=== PATIENT | female | born 1935 | race Caucasian/White ===

== ENCOUNTER 2022-06-14 21:13 | Inpatient (IN) ==
[2022-06-14] MEDS ORDERED: ALBUTEROL/IPRATROPIUM 3 ML NEB RESP TX STA (21:56)
[2022-06-14] MEDS ORDERED: methylPREDNISolone SOD SUC 125 MG/2 ML VIAL IV STA (21:56)
[2022-06-14] MEDS ORDERED: ALBUTEROL NEB SOLN 5 MG/ML 20 ML/BOTTLE CONT NEB SCH (22:30)
[2022-06-14] MEDS ORDERED: ALBUTEROL 2.5 MG/3 ML NEB RESP TX ONE (22:32)
[2022-06-14 22:35] LABS: Basophils % 0.1 % (0.0-0.8); Hematocrit 41.4 VOL% (35.7-47.0); Hemoglobin 13.6 GM/DL (12.0-16.0); Immature Granulocytes % 0.6 %; Immature Granulocytes Absolute 0.09 #; Lymphocytes # 2.2 10*3/uL (1.4-4.0); Lymphocytes % 15.7 % (21.3-54.2); Mean Corpuscular HGB Conc 32.9 GM/DL (32-36); Mean Platelet Volume 10.3 FL (9.6-12.0); Monocytes # 0.5 10*3/uL (0.11-0.8); Monocytes % 3.5 % (1.7-12.7); Neutrophils % 80.1 % (38.7-73.9); Platelet Count 320 T/CUMM (130-400); Red Blood Count 4.45 MC/CUMM (3.8-5.5); Red Cell Distribution Width 13.6 % (9.3-17.3); White Blood Count 14.2 T/CUMM (4-12)
[2022-06-14 22:55] LABS: PT Patient Result 10.7 SECS (10.1-12.1)
[2022-06-14 23:19] LABS: Alanine Aminotransferase 23 U/L (13-56); Albumin 4.1 G/DL (3.4-5.0); Alkaline Phosphatase 97 U/L (45-117); Aspartate Amino Transferase 31 U/L (0-37); Bilirubin,Total < 0.39 MG/DL (0.20-1.00); Blood Urea Nitrogen 32 MG/DL (7-18); Carbon Dioxide 23 MMOL/L (21-32); Chloride 101 MMOL/L (98-107); Glucose 237 MG/DL (74-106); Osmolality,Calculated 282.2 MOS/KG (273-304); Potassium 3.9 MMOL/L (3.5-5.1); Sodium 134 MMOL/L (136-145); Total Protein 7.6 G/DL (6.4-8.2)
[2022-06-14] MEDS ORDERED: cefTRIAXone 1,000 MG in SODIUM CHLORIDE 0.9% 100 ML IV STA (23:44)
[2022-06-15 00:35] LABS: Amorphous Crystals,Urine Occasional /HPF (Few); Mucus,Urine Occasional /LPF (Occasional); Squamous Epithelial Cell,Urine Occasional /HPF (0-10)
[2022-06-15 00:40] LABS: Bilirubin,Urine Negative (Negative); Blood, Urine Moderate mg/dL (Negative); Glucose,Urine (UA) >=1000 mg/dL (Negative); Ketones,Urine Trace mg/dL (Negative); Nitrite,Urine Negative (Negative); Protein,Urine >=300 mg/dL (Negative); Urine Appearance Clear (Clear); Urine Color Yellow (Yellow); Urine Specific Gravity 1.025 (1.001-1.035); Urine Urobilinogen 0.2 eU/dL (<2.0)
[2022-06-15] MEDS ORDERED: GLUCAGON 1 MG VIAL IM PRN (03:22)
[2022-06-15] MEDS ORDERED: MORPHINE 2 MG/1 ML SYRINGE IV PRN (03:22)
[2022-06-15] MEDS ORDERED: DEXTROSE 10% 250 ML BAG IV PRN (03:22)
[2022-06-15] MEDS ORDERED: ONDANSETRON 4 MG/2 ML VIAL IV PRN (03:22)
[2022-06-15] MEDS: SODIUM CHLORIDE 0.9% 1,000 ML IV SCH ×2 (03:40→20:26)
[2022-06-15 05:21] LABS: Basophils % 0.1 % (0.0-0.8); Hematocrit 39.4 VOL% (35.7-47.0); Immature Granulocytes % 0.6 %; Immature Granulocytes Absolute 0.07 #; Lymphocytes % 8.5 % (21.3-54.2); Mean Corpuscular Volume 93.6 FL (87-102); Mean Platelet Volume 10.8 FL (9.6-12.0); Monocytes # 0.1 10*3/uL (0.11-0.8); Monocytes % 0.9 % (1.7-12.7); Neutrophils % 89.9 % (38.7-73.9); Platelet Count 301 T/CUMM (130-400); Red Blood Count 4.21 MC/CUMM (3.8-5.5); Red Cell Distribution Width 13.6 % (9.3-17.3); White Blood Count 11.3 T/CUMM (4-12)
[2022-06-15 05:36] LABS: Alanine Aminotransferase 22 U/L (13-56); Albumin 3.6 G/DL (3.4-5.0); Alkaline Phosphatase 93 U/L (45-117); Aspartate Amino Transferase 27 U/L (0-37); Bilirubin,Total < 0.39 MG/DL (0.20-1.00); Blood Urea Nitrogen 36 MG/DL (7-18); Calcium 8.6 MG/DL (8.5-10.1); Carbon Dioxide 20 MMOL/L (21-32); Chloride 99 MMOL/L (98-107); Glucose 360 MG/DL (74-106); Osmolality,Calculated 290.2 MOS/KG (273-304); Potassium 3.4 MMOL/L (3.5-5.1); Sodium 134 MMOL/L (136-145); Total Protein 7.2 G/DL (6.4-8.2)
[2022-06-15] MEDS: INSULIN REGULAR 100 UNIT/ML SUBCUT SCH ×3 (06:30→18:29)
[2022-06-15] MEDS: PANTOPRAZOLE 40 MG TABLET PO SCH (08:53)
[2022-06-15] MEDS: DOCUSATE SODIUM 100 MG CAPSULE PO SCH ×2 (08:53→21:18)
[2022-06-15] MEDS: ALBUTEROL/IPRATROPIUM 3 ML NEB RESP TX SCH ×4 (10:47→19:07)
[2022-06-15] MEDS: ACETAMINOPHEN 325 MG TABLET PO PRN (12:15)
[2022-06-15] MEDS: methylPREDNISolone SOD SUC 40 MG/1 ML VIAL IV SCH (15:44)
[2022-06-15] MEDS: AZITHROMYCIN INJ 500 MG in SODIUM CHLORIDE 0.9% 250 ML IV SCH (15:44)
[2022-06-15] MEDS ORDERED: ENOXAPARIN 40 MG/0.4 ML SYRINGE SUBCUT SCH (21:00)
[2022-06-16] MEDS: INSULIN REGULAR 100 UNIT/ML SUBCUT SCH ×4 (00:22→17:25)
[2022-06-16] MEDS: ALBUTEROL/IPRATROPIUM 3 ML NEB RESP TX SCH ×7 (00:55→22:29)
[2022-06-16] MEDS: methylPREDNISolone SOD SUC 40 MG/1 ML VIAL IV SCH ×2 (03:25→17:15)
[2022-06-16 05:17] LABS: Basophils % 0.2 % (0.0-0.8); Hemoglobin 12.3 GM/DL (12.0-16.0); Immature Granulocytes % 0.9 %; Lymphocytes # 2.5 10*3/uL (1.4-4.0); Lymphocytes % 10.7 % (21.3-54.2); Mean Corpuscular HGB Conc 32.4 GM/DL (32-36); Mean Corpuscular Volume 92.2 FL (87-102); Mean Platelet Volume 10.4 FL (9.6-12.0); Monocytes # 1.4 10*3/uL (0.11-0.8); Neutrophils % 82.2 % (38.7-73.9); Platelet Count 305 T/CUMM (130-400); Red Blood Count 4.12 MC/CUMM (3.8-5.5); Red Cell Distribution Width 13.6 % (9.3-17.3); White Blood Count 22.9 T/CUMM (4-12)
[2022-06-16 05:38] LABS: Osmolality,Calculated 292.7 MOS/KG (273-304); Potassium 3.5 MMOL/L (3.5-5.1)
[2022-06-16 06:25] LABS: Band Neutrophils 3 % (0-10); Lymphocytes 7 % (20-55); Microcytosis 1+; Target Cells Slight; Total Cells Counted 100
[2022-06-16 06:26] LABS: Ovalocytes Slight; Platelet Estimate Normal
[2022-06-16] MEDS: PANTOPRAZOLE 40 MG TABLET PO SCH (10:14)
[2022-06-16] MEDS: DOCUSATE SODIUM 100 MG CAPSULE PO SCH ×2 (10:14→21:52)
[2022-06-16] MEDS: cefTRIAXone 1,000 MG in SODIUM CHLORIDE 0.9% 100 ML IV SCH (10:15)
[2022-06-16] MEDS: DAPAGLIFLOZIN 5 MG TABLET PO SCH (10:15)
[2022-06-16] MEDS: SODIUM CHLORIDE 0.9% 1,000 ML IV SCH (10:20)
[2022-06-16] MEDS: AZITHROMYCIN INJ 500 MG in SODIUM CHLORIDE 0.9% 250 ML IV SCH (17:15)
[2022-06-16] MEDS ORDERED: ENOXAPARIN 30 MG/0.3 ML SYRINGE SUBCUT SCH (21:00)
[2022-06-16] MEDS: ACETAMINOPHEN 325 MG TABLET PO PRN (21:52)
[2022-06-16] MEDS: GLIMEPIRIDE 4 MG TABLET PO SCH (21:52)
[2022-06-16] MEDS: SIMVASTATIN 20 MG TABLET PO SCH (21:53)
[2022-06-16] MEDS: BENZONATATE 100 MG CAPSULE PO SCH (22:46)
[2022-06-16] MEDS ORDERED: DILTIAZEM 50 MG/10 ML VIAL IV ONE (23:30)
[2022-06-17] MEDS: INSULIN REGULAR 100 UNIT/ML SUBCUT SCH ×4 (00:25→19:08)
[2022-06-17] MEDS: DILTIAZEM INJ 100 MG in SODIUM CHLORIDE 0.9% 100 ML IV SCH (00:59)
[2022-06-17] MEDS: ALBUTEROL/IPRATROPIUM 3 ML NEB RESP TX SCH ×3 (02:31→11:25)
[2022-06-17] MEDS: methylPREDNISolone SOD SUC 40 MG/1 ML VIAL IV SCH ×2 (04:02→17:02)
[2022-06-17 05:08] LABS: Basophils % 0.1 % (0.0-0.8); Hematocrit 39.3 VOL% (35.7-47.0); Hemoglobin 12.7 GM/DL (12.0-16.0); Immature Granulocytes % 2.2 %; Immature Granulocytes Absolute 0.54 #; Lymphocytes # 1.8 10*3/uL (1.4-4.0); Lymphocytes % 7.2 % (21.3-54.2); Mean Corpuscular HGB Conc 32.3 GM/DL (32-36); Mean Corpuscular Volume 94.5 FL (87-102); Mean Platelet Volume 10.5 FL (9.6-12.0); Monocytes # 1.3 10*3/uL (0.11-0.8); Monocytes % 5.5 % (1.7-12.7); Platelet Count 301 T/CUMM (130-400); Red Blood Count 4.16 MC/CUMM (3.8-5.5); Red Cell Distribution Width 13.9 % (9.3-17.3); White Blood Count 24.2 T/CUMM (4-12)
[2022-06-17 05:31] LABS: Calcium 8.8 MG/DL (8.5-10.1); Osmolality,Calculated 291.5 MOS/KG (273-304); Potassium 3.6 MMOL/L (3.5-5.1)
[2022-06-17 05:37] LABS: Lymphocytes 5 % (20-55); Platelet Estimate Normal; Total Cells Counted 100
[2022-06-17] MEDS ORDERED: ENOXAPARIN 40 MG/0.4 ML SYRINGE SUBCUT SCH (09:00)
[2022-06-17] MEDS: BENZONATATE 100 MG CAPSULE PO SCH ×3 (09:04→21:33)
[2022-06-17] MEDS: PANTOPRAZOLE 40 MG TABLET PO SCH (09:04)
[2022-06-17] MEDS: DOCUSATE SODIUM 100 MG CAPSULE PO SCH ×2 (09:04→21:33)
[2022-06-17] MEDS: cefTRIAXone 1,000 MG in SODIUM CHLORIDE 0.9% 100 ML IV SCH (09:05)
[2022-06-17] MEDS: DAPAGLIFLOZIN 5 MG TABLET PO SCH (09:13)
[2022-06-17] MEDS: GLIMEPIRIDE 4 MG TABLET PO SCH ×2 (10:05→21:34)
[2022-06-17] MEDS ORDERED: DILTIAZEM CD 120 MG CAPSULE PO SCH (11:30)
[2022-06-17] MEDS ORDERED: POTASSIUM CHLORIDE 20 MEQ TABLET PO ONE (12:38)
[2022-06-17] MEDS: DILTIAZEM CD 240 MG CAPSULE PO SCH (13:49)
[2022-06-17] MEDS: AZITHROMYCIN INJ 500 MG in SODIUM CHLORIDE 0.9% 250 ML IV SCH (14:43)
[2022-06-17] MEDS: SODIUM CHLORIDE 0.9% 1,000 ML IV SCH ×2 (19:09→23:09)
[2022-06-17] MEDS: ASCORBIC ACID 500 MG TABLET PO SCH (21:33)
[2022-06-17] MEDS: APIXABAN 2.5 MG TABLET PO SCH (21:33)
[2022-06-17] MEDS: SIMVASTATIN 20 MG TABLET PO SCH (21:33)
[2022-06-17] MEDS: LEVALBUTEROL 1.25 MG/3 ML NEB RESP TX PRN (21:54)
[2022-06-18] MEDS: SODIUM CHLORIDE 0.9% 1,000 ML IV SCH ×2 (01:12→18:03)
[2022-06-18] MEDS: DILTIAZEM INJ 100 MG in SODIUM CHLORIDE 0.9% 100 ML IV SCH (01:12)
[2022-06-18] MEDS: INSULIN REGULAR 100 UNIT/ML SUBCUT SCH ×5 (03:56→23:32)
[2022-06-18] MEDS: methylPREDNISolone SOD SUC 40 MG/1 ML VIAL IV SCH ×2 (04:02→18:03)
[2022-06-18 05:51] LABS: Basophils # 0.1 10*3/uL (0.0-0.2); Basophils % 0.4 % (0.0-0.8); Hematocrit 40.4 VOL% (35.7-47.0); Hemoglobin 13.5 GM/DL (12.0-16.0); Immature Granulocytes Absolute 1.11 #; Lymphocytes # 2.2 10*3/uL (1.4-4.0); Lymphocytes % 7.9 % (21.3-54.2); Mean Corpuscular HGB Conc 33.4 GM/DL (32-36); Mean Corpuscular Volume 93.3 FL (87-102); Mean Platelet Volume 10.6 FL (9.6-12.0); Monocytes # 1.1 10*3/uL (0.11-0.8); Neutrophils % 83.7 % (38.7-73.9); Platelet Count 346 T/CUMM (130-400); Red Blood Count 4.33 MC/CUMM (3.8-5.5); White Blood Count 27.7 T/CUMM (4-12)
[2022-06-18 06:11] LABS: Calcium 9.2 MG/DL (8.5-10.1); Osmolality,Calculated 290.7 MOS/KG (273-304); Potassium 4.5 MMOL/L (3.5-5.1)
[2022-06-18 06:14] LABS: Lymphocytes 8 % (20-55); Microcytosis 1+; Ovalocytes Slight; Total Cells Counted 100
[2022-06-18 06:15] LABS: Platelet Estimate Normal
[2022-06-18] MEDS: DILTIAZEM CD 240 MG CAPSULE PO SCH (11:04)
[2022-06-18] MEDS: GLIMEPIRIDE 4 MG TABLET PO SCH ×2 (11:04→21:34)
[2022-06-18] MEDS: DOCUSATE SODIUM 100 MG CAPSULE PO SCH ×2 (11:04→21:33)
[2022-06-18] MEDS: APIXABAN 2.5 MG TABLET PO SCH ×2 (11:04→21:34)
[2022-06-18] MEDS: BENZONATATE 100 MG CAPSULE PO SCH ×3 (11:05→21:33)
[2022-06-18] MEDS: ASCORBIC ACID 500 MG TABLET PO SCH ×2 (11:05→21:33)
[2022-06-18] MEDS: POTASSIUM CHLORIDE 20 MEQ TABLET PO SCH (11:05)
[2022-06-18] MEDS: cefTRIAXone 1,000 MG in SODIUM CHLORIDE 0.9% 100 ML IV SCH (11:05)
[2022-06-18] MEDS: PANTOPRAZOLE 40 MG TABLET PO SCH (11:05)
[2022-06-18] MEDS: DAPAGLIFLOZIN 5 MG TABLET PO SCH (11:06)
[2022-06-18] MEDS: AZITHROMYCIN INJ 500 MG in SODIUM CHLORIDE 0.9% 250 ML IV SCH (18:03)
[2022-06-18] MEDS: LEVALBUTEROL 1.25 MG/3 ML NEB RESP TX PRN (21:11)
[2022-06-18] MEDS: SIMVASTATIN 20 MG TABLET PO SCH (21:33)
[2022-06-19] MEDS: methylPREDNISolone SOD SUC 40 MG/1 ML VIAL IV SCH ×2 (04:31→16:10)
[2022-06-19 05:01] LABS: Basophils # 0.1 10*3/uL (0.0-0.2); Basophils % 0.4 % (0.0-0.8); Hematocrit 39.9 VOL% (35.7-47.0); Hemoglobin 13.2 GM/DL (12.0-16.0); Immature Granulocytes % 4.6 %; Immature Granulocytes Absolute 0.93 #; Lymphocytes # 1.6 10*3/uL (1.4-4.0); Lymphocytes % 7.7 % (21.3-54.2); Mean Corpuscular HGB Conc 33.1 GM/DL (32-36); Mean Corpuscular Volume 92.6 FL (87-102); Mean Platelet Volume 10.6 FL (9.6-12.0); Monocytes # 0.8 10*3/uL (0.11-0.8); Neutrophils % 83.3 % (38.7-73.9); Platelet Count 284 T/CUMM (130-400); Red Blood Count 4.31 MC/CUMM (3.8-5.5); Red Cell Distribution Width 13.9 % (9.3-17.3); White Blood Count 20.1 T/CUMM (4-12)
[2022-06-19 05:23] LABS: Hypochromia Slight; Lymphocytes 11 % (20-55); Microcytosis Slight; Platelet Estimate Adequate; Total Cells Counted 100
[2022-06-19 05:35] LABS: Calcium 8.7 MG/DL (8.5-10.1); Osmolality,Calculated 294.4 MOS/KG (273-304); Potassium 4.3 MMOL/L (3.5-5.1)
[2022-06-19] MEDS: INSULIN REGULAR 100 UNIT/ML SUBCUT SCH ×3 (05:53→18:13)
[2022-06-19] MEDS: DOCUSATE SODIUM 100 MG CAPSULE PO SCH ×2 (10:37→21:33)
[2022-06-19] MEDS: POTASSIUM CHLORIDE 20 MEQ TABLET PO SCH (10:38)
[2022-06-19] MEDS: APIXABAN 2.5 MG TABLET PO SCH ×2 (10:39→21:33)
[2022-06-19] MEDS: BENZONATATE 100 MG CAPSULE PO SCH ×3 (10:41→21:32)
[2022-06-19] MEDS: ASCORBIC ACID 500 MG TABLET PO SCH ×2 (10:42→21:33)
[2022-06-19] MEDS: DAPAGLIFLOZIN 10 MG TABLET PO SCH (10:43)
[2022-06-19] MEDS: cefTRIAXone 1,000 MG in SODIUM CHLORIDE 0.9% 100 ML IV SCH (10:43)
[2022-06-19] MEDS: PANTOPRAZOLE 40 MG TABLET PO SCH (10:43)
[2022-06-19] MEDS: DILTIAZEM CD 240 MG CAPSULE PO SCH (10:57)
[2022-06-19] MEDS: GLIMEPIRIDE 4 MG TABLET PO SCH ×2 (10:57→21:33)
[2022-06-19] MEDS: SODIUM CHLORIDE 0.9% 1,000 ML IV SCH (10:59)
[2022-06-19] MEDS: LEVALBUTEROL 1.25 MG/3 ML NEB RESP TX PRN ×2 (15:18→19:53)
[2022-06-19] MEDS: AZITHROMYCIN INJ 500 MG in SODIUM CHLORIDE 0.9% 250 ML IV SCH (16:10)
[2022-06-19] MEDS: SIMVASTATIN 20 MG TABLET PO SCH (21:33)
[2022-06-20] MEDS: INSULIN REGULAR 100 UNIT/ML SUBCUT SCH ×4 (00:35→17:00)
[2022-06-20] MEDS: SODIUM CHLORIDE 0.9% 1,000 ML IV SCH ×2 (02:24→15:24)
[2022-06-20] MEDS: methylPREDNISolone SOD SUC 40 MG/1 ML VIAL IV SCH (04:34)
[2022-06-20 05:26] LABS: Basophils # 0.1 10*3/uL (0.0-0.2); Basophils % 0.4 % (0.0-0.8); Hemoglobin 12.8 GM/DL (12.0-16.0); Immature Granulocytes % 6.4 %; Immature Granulocytes Absolute 1.29 #; Lymphocytes # 1.6 10*3/uL (1.4-4.0); Lymphocytes % 7.9 % (21.3-54.2); Mean Corpuscular HGB Conc 33.7 GM/DL (32-36); Mean Corpuscular Volume 91.8 FL (87-102); Mean Platelet Volume 10.7 FL (9.6-12.0); Monocytes # 1.3 10*3/uL (0.11-0.8); Monocytes % 6.3 % (1.7-12.7); Platelet Count 324 T/CUMM (130-400); Red Blood Count 4.14 MC/CUMM (3.8-5.5); Red Cell Distribution Width 14.1 % (9.3-17.3); White Blood Count 20.2 T/CUMM (4-12)
[2022-06-20 05:54] LABS: Anisocytosis Slight; Lymphocytes 11 % (20-55); Platelet Estimate Normal; Total Cells Counted 100
[2022-06-20 05:55] LABS: Macrocytosis Slight
[2022-06-20 05:59] LABS: Calcium 8.5 MG/DL (8.5-10.1); Osmolality,Calculated 292.3 MOS/KG (273-304); Potassium 4.1 MMOL/L (3.5-5.1)
[2022-06-20] MEDS: GLIMEPIRIDE 4 MG TABLET PO SCH ×2 (10:11→21:25)
[2022-06-20] MEDS: DOCUSATE SODIUM 100 MG CAPSULE PO SCH ×2 (10:11→21:25)
[2022-06-20] MEDS: DILTIAZEM CD 240 MG CAPSULE PO SCH (10:11)
[2022-06-20] MEDS: predniSONE 20 MG TABLET PO SCH (10:12)
[2022-06-20] MEDS: PANTOPRAZOLE 40 MG TABLET PO SCH (10:12)
[2022-06-20] MEDS: cefTRIAXone 1,000 MG in SODIUM CHLORIDE 0.9% 100 ML IV SCH (10:12)
[2022-06-20] MEDS: ASCORBIC ACID 500 MG TABLET PO SCH ×2 (10:12→21:26)
[2022-06-20] MEDS: LOSARTAN 50 MG TABLET PO SCH (10:12)
[2022-06-20] MEDS: POTASSIUM CHLORIDE 20 MEQ TABLET PO SCH (10:12)
[2022-06-20] MEDS: DAPAGLIFLOZIN 10 MG TABLET PO SCH (10:12)
[2022-06-20] MEDS: BENZONATATE 100 MG CAPSULE PO SCH ×3 (10:12→21:29)
[2022-06-20] MEDS: APIXABAN 2.5 MG TABLET PO SCH ×2 (10:12→21:25)
[2022-06-20] MEDS: SIMVASTATIN 20 MG TABLET PO SCH (21:26)
[2022-06-21] MEDS: INSULIN REGULAR 100 UNIT/ML SUBCUT SCH ×3 (00:52→13:12)
[2022-06-21 05:12] LABS: Basophils # 0.1 10*3/uL (0.0-0.2); Basophils % 0.5 % (0.0-0.8); Eosinophils % 0.1 % (0.00-10.9); Hematocrit 38.5 VOL% (35.7-47.0); Hemoglobin 12.9 GM/DL (12.0-16.0); Immature Granulocytes % 5.5 %; Immature Granulocytes Absolute 0.99 #; Lymphocytes # 3.1 10*3/uL (1.4-4.0); Lymphocytes % 17.1 % (21.3-54.2); Mean Corpuscular HGB Conc 33.5 GM/DL (32-36); Mean Corpuscular Volume 91.9 FL (87-102); Mean Platelet Volume 10.7 FL (9.6-12.0); Monocytes # 1.6 10*3/uL (0.11-0.8); Monocytes % 8.9 % (1.7-12.7); Neutrophils % 67.9 % (38.7-73.9); Platelet Count 283 T/CUMM (130-400); Red Blood Count 4.19 MC/CUMM (3.8-5.5); Red Cell Distribution Width 13.7 % (9.3-17.3); White Blood Count 18.2 T/CUMM (4-12)
[2022-06-21 05:39] LABS: Calcium 8.5 MG/DL (8.5-10.1); Osmolality,Calculated 289.1 MOS/KG (273-304); Potassium 3.6 MMOL/L (3.5-5.1)
[2022-06-21 05:42] LABS: Band Neutrophils 1 % (0-10); Lymphocytes 16 % (20-55); Platelet Estimate Normal; Total Cells Counted 100
[2022-06-21 05:43] LABS: Atypical Lymphocytes Few
[2022-06-21] MEDS: SODIUM CHLORIDE 0.9% 1,000 ML IV SCH (06:07)
[2022-06-21] MEDS: GLIMEPIRIDE 4 MG TABLET PO SCH (09:40)
[2022-06-21] MEDS: DILTIAZEM CD 240 MG CAPSULE PO SCH (09:41)
[2022-06-21] MEDS: DOCUSATE SODIUM 100 MG CAPSULE PO SCH (09:41)
[2022-06-21] MEDS: LOSARTAN 50 MG TABLET PO SCH (09:41)
[2022-06-21] MEDS: DAPAGLIFLOZIN 10 MG TABLET PO SCH (09:42)
[2022-06-21] MEDS: APIXABAN 2.5 MG TABLET PO SCH (09:42)
[2022-06-21] MEDS: cefTRIAXone 1,000 MG in SODIUM CHLORIDE 0.9% 100 ML IV SCH (09:42)
[2022-06-21] MEDS: PANTOPRAZOLE 40 MG TABLET PO SCH (09:42)
[2022-06-21] MEDS: predniSONE 20 MG TABLET PO SCH (09:42)
[2022-06-21] MEDS: POTASSIUM CHLORIDE 20 MEQ TABLET PO SCH (09:42)
[2022-06-21] MEDS: BENZONATATE 100 MG CAPSULE PO SCH ×2 (09:42→16:18)
[2022-06-21] MEDS: ASCORBIC ACID 500 MG TABLET PO SCH (09:43)
[2022-06-21 12:31] VITALS: BP 164/78
== END 2022-06-21 16:18 | disposition home or self-care (01) | DRG 194 ==
LOC: N.ED 21:13 → N.EDINP 06-15 01:39 → N.2E 06-15 04:10 → N.TELEN 06-17 00:53
PROVIDERS: ADMIT Internal Medicine; ATTEND Emergency Medicine